=== PATIENT | female | born 1955 | race Caucasian/White ===

== ENCOUNTER 2022-11-20 10:27 | Emergency (ER) | payer MEDICARE, SELFPAY ==
[2022-11-20 10:32] VITALS: BP 139/82; PULSE 77; RESP 18; TEMP 36.1; O2SAT 98; BMI 21.5
--- NOTE | 2022-11-20 10:39 | ED.GENADUL1 ---
HPI - General Adult General Chief complaint: Dizziness Stated complaint: DIZZINESS, FEELING OF POSSIBLE BLACK OUT Time Seen by Provider: 11/20/22 10:39 Source: patient Mode of arrival: walk-in Limitations: no limitations History of Present Illness HPI narrative: the patient has history of hypothyroidism as well as anxiety coming to the Emergency Room after she feels that she is weak when she woke up this morning, she denies any nausea vomiting diarrhea abdominal pain but she had generalized weakness with no laterality the patient has no other complaint although she mentioned that she has been dealing with constipation and diarrhea that is alternating for the last few weeks She also requested a new primary care Review of systems otherwise negative Related Data Previous Rx's Medication Instructions Recorded levothyroxine 88 mcg tablet 88 mcg PO DAILY #14 tabs 11/20/22 (Synthroid) Review of Systems ROS Status of ROS 10 or more systems reviewed and unremarkable except as noted in history and below Exam Narrative Exam Narrative: Nurses notes and vital signs reviewed and patient is not hypoxic. General: Well-appearing and in no apparent distress. Skin: Warm, dry, no pallor noted. No rash. Head: Normocephalic, atraumatic. Neck: Supple, non-tender. Eye: Pupils are equal, round and EOMI. No scleral icterus. Ears, Nose, Mouth, and Throat: TM are clear, no nasal mucosal hypertrophy. Oral mucosa is moist, no posterior oropharynx erythema, uvula is mid-line Cardiovascular: Regular Rate and Rhythm without murmur, gallop or rub. Respiratory: No accessory muscle use or respiratory distress. Lungs are clear to auscultation, no wheezing, rales or rhonchi Chest Wall: no tenderness Back: No midline thoracic or lumbar vertebral tenderness. No CVA tenderness Musculoskeletal: normal ROM, no calf or popliteal tenderness, no lower extremity edema/swelling GI: Abdomen is soft, non-distended. Normal bowel sounds. No masses appreciated. No tenderness to palpation. No rebound, guarding, or rigidity noted. Neurological: A&O x4. No cranial nerve dysfunction observed. No truncal ataxia. Moves all extremities. Sensation intact. Psychiatric: Cooperative and interactive. Normal mood and affect. Constitutional Vital Signs - 24 hr 11/20/22 10:32 Temperature 97 F L Pulse Rate [Monitor] 77 Respiratory Rate 18 Blood Pressure [Right Arm] 139/82 H Pulse Oximetry 98 Oxygen Delivery Method Room Air Course Vital Signs Vital signs: Vital Signs Temperature 97 F L 11/20/22 10:32 Pulse Rate 77 11/20/22 10:32 Respiratory Rate 18 11/20/22 10:32 Blood Pressure 139/82 H 11/20/22 10:32 Pulse Oximetry 98 11/20/22 10:32 Oxygen Delivery Method Room Air 11/20/22 10:32 Temperature 97 F L 11/20/22 10:32 Pulse Rate 77 11/20/22 10:32 Respiratory Rate 18 11/20/22 10:32 Blood Pressure 139/82 H 11/20/22 10:32 Pulse Oximetry 98 11/20/22 10:32 Oxygen Delivery Method Room Air 11/20/22 10:32 Medical Decision Making MDM Narrative Medical decision making narrative: the patient presented to us with generalized weakness and history of anxiety No history of any organic symptoms other than generalized weakness CBC and chemistry showed no acute significant pathology and the patient was feeling much better after she was hydrated with 1 L of fluid The patient had her Synthroid refilled as she does not have a primary care doctor at the moment that she was referred to a new primary care doctor The patient EKG showing sinus rhythm with a heart rate of sixty-four ST elevation or depression .The patient is to followup with primary care physician in next 2-3 days or to return to the emergency department should any of the signs or symptoms worsen or new symptoms develop. The patient agrees with the following Diagnosis and Treatment plan and the patient will be discharged home. Lab Data Labs: Lab Results 11/20/22 Range/Units 10:54 WBC 8.4 (4.0-11.0) 10^3/uL RBC 5.29 (4.20-5.40) 10^6/uL Hgb 15.8 (12.0-16.0) g/dL Hct 47.4 (36.0-48.0) % MCV 89.6 (81.0-99.0) fL MCH 29.9 (26.7-34.0) pg MCHC 33.3 (29.9-35.2) g/dL RDW 13.0 (11.0-15.0) % Plt Count 298 (150-450) 10^3/uL MPV 9.4 L (9.5-13.5) fL Neut % (Auto) 76.8 H (43.0-75.0) % Lymph % (Auto) 14.0 L (20.5-60.0) % [place] % (Auto) 7.1 (1.7-12.0) % Eos % (Auto) 0.8 L (0.9-7.0) % Baso % (Auto) 0.7 (0.2-2.0) % Neut # (Auto) 6.5 (1.4-6.5) 10^3/uL Lymph # (Auto) 1.2 (1.2-3.8) 10^3/uL [place] # (Auto) 0.6 (0.3-0.8) 10^3/uL Eos # (Auto) 0.1 (0.0-0.7) 10^3/uL Baso # (Auto) 0.1 (0.0-0.1) 10^3/uL Abs Immat Gran (auto) 0.05 H (0.00-0.03) 10^3/uL Imm/Tot Granulo (auto) 0.6 H (0.0-0.5) % Sodium 139 (136-145) mmol/L Potassium 4.2 (3.5-5.1) mmol/L Chloride 101 (98-107) mmol/L Carbon Dioxide 27.4 (21.0-32.0) mmol/L Anion Gap 14.8 BUN 11.0 (7.0-18.0) mg/dL Creatinine 0.70 (0.55-1.02) mg/dL Est GFR ( Amer) >60 (>=60) Est GFR (Non-Af Amer) >60 (>=60) BUN/Creatinine Ratio 15.7 Glucose 92 (74-106) mg/dL Calcium 9.2 (8.5-10.1) mg/dL Magnesium 2.4 (1.8-2.4) mg/dL Total Bilirubin 0.5 (0.2-1.0) mg/dL AST 24 (15-37) U/L ALT 18 (14-59) U/L Alkaline Phosphatase 93 (46-116) U/L Total Protein 8.2 (6.4-8.2) g/dL Albumin 3.7 (3.4-5.0) g/dL Globulin 4.5 g/dL Albumin/Globulin Ratio 0.8 TSH 0.688 (0.358-3.740) uIU/mL Discharge Plan Discharge Chief Complaint: Dizziness Clinical Impression: Dizziness, Episode of generalized weakness Patient Disposition: Home, Self-Care Time of Disposition Decision: 12:21 Condition: Good Mode of Transportation: Private Vehicle Prescriptions / Home Meds: New levothyroxine [Synthroid] 88 mcg tablet 88 mcg PO DAILY Qty: 14 0RF Instructions: Dizziness (ED) Stand Alone Forms: Portal Instructions Referrals: MINI HUTCHINSON [Primary Care Provider] - 1 week Follow Up Appointments: New PCP
--- NOTE | 2022-11-20 10:43 | ECG_ITS ---
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
[2022-11-20 11:06] LABS: Basophils Absolute Auto 0.1 10^3/uL (0.0-0.1); Basophils Percent Auto 0.7 % (0.2-2.0); Eosinophils Absolute Auto 0.1 10^3/uL (0.0-0.7); Eosinophils Percent Auto 0.8 % (0.9-7.0); Hematocrit 47.4 % (36.0-48.0); Hemoglobin 15.8 g/dL (12.0-16.0); Immature Granulocytes Abs Auto 0.05 10^3/uL (0.00-0.03); Immature Granulocytes Pct Auto 0.6 % (0.0-0.5); Lymphocytes Absolute Auto 1.2 10^3/uL (1.2-3.8); Mean Corpuscular HGB Conc 33.3 g/dL (29.9-35.2); Mean Corpuscular Hemoglobin 29.9 pg (26.7-34.0); Mean Corpuscular Volume 89.6 fL (81.0-99.0); Mean Platelet Volume 9.4 fL (9.5-13.5); Monocytes Absolute Auto 0.6 10^3/uL (0.3-0.8); Monocytes Percent Auto 7.1 % (1.7-12.0); Neutrophils Absolute Auto 6.5 10^3/uL (1.4-6.5); Neutrophils Percent Auto 76.8 % (43.0-75.0); Platelet Count 298 10^3/uL (150-450); Red Blood Count 5.29 10^6/uL (4.20-5.40); White Blood Count 8.4 10^3/uL (4.0-11.0)
--- NOTE | 2022-11-20 11:06 | ECG_ITS ---
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
[2022-11-20] MEDS: 0.9 % SODIUM CHLORIDE 1,000 ML 1000 ML IV (11:09)
[2022-11-20 11:28] LABS: Anion Gap 14.8
[2022-11-20 11:37] LABS: Alanine Aminotransferase 18 U/L (14-59); Albumin Globulin Ratio 0.8; Albumin Level 3.7 g/dL (3.4-5.0); Alkaline Phosphatase 93 U/L (46-116); Aspartate Amino Transferase 24 U/L (15-37); BUN Creatinine Ratio 15.7; Bilirubin Total 0.5 mg/dL (0.2-1.0); Calcium 9.2 mg/dL (8.5-10.1); Carbon Dioxide 27.4 mmol/L (21.0-32.0); Chloride 101 mmol/L (98-107); Estimated GFR (African America >60 (>=60); Estimated GFR (Non-African Ame >60 (>=60); Globulin 4.5 g/dL; Glucose 92 mg/dL (74-106); Magnesium 2.4 mg/dL (1.8-2.4); Potassium 4.2 mmol/L (3.5-5.1); Sodium 139 mmol/L (136-145); Thyroid Stimulating Hormone 0.688 uIU/mL (0.358-3.740); Total Protein 8.2 g/dL (6.4-8.2)
[2022-11-20 12:58] VITALS: BP 134/72; PULSE 82; RESP 18; O2SAT 98
== END 2022-11-20 12:59 | disposition home or self-care (01) ==
PROVIDERS: Emergency Provider Emergency Medicine; Family Provider Nurse Practitioner Primary Care; PCP Family Medicine
DX: R42 Dizziness and giddiness (principal); R53.1 Weakness; F41.9 Anxiety disorder, unspecified; E03.9 Hypothyroidism, unspecified; Z79.890 Hormone replacement therapy
CPT/HCPCS: 36415; 80053; 83735; 84443; 85025; 93005; 99284

== ENCOUNTER 2022-12-20 14:00 | Outpatient (OUT) | payer MEDICARE, SELFPAY | END 2022-12-21 14:01 | disposition home or self-care (01) | PROVIDERS: Family Provider Nurse Practitioner Primary Care; Visit Provider Surgery | DX: Z01.818 Encounter for other preprocedural examination (principal); R19.4 Change in bowel habit; R13.10 Dysphagia, unspecified ==

== ENCOUNTER 2022-12-25 07:58 | Day surgery (SDC) | payer MEDICARE, SELFPAY ==
[2022-12-25 08:28] VITALS: BP 117/72; PULSE 77; RESP 16; TEMP 36; O2SAT 97; BMI 19.1
[2022-12-25] MEDS: LACTATED RINGER'S SOLUTION 1,000 ML 50 ML IV (08:48)
[2022-12-25 10:19] VITALS: BP 92/56; PULSE 65; RESP 18; TEMP 36; O2SAT 98
[2022-12-25 10:34] VITALS: BP 88/69; PULSE 66; RESP 16; O2SAT 98
[2022-12-25 10:50] VITALS: BP 105/67; PULSE 66; RESP 16; O2SAT 99
--- NOTE | 2022-12-25 13:15 | PM.GSPRC ---
Date of procedure: 12/25/22 Indications for Procedure: This patient is a 67-year-old female who presents for EGD due to occasioonal dysphagia as well as screening colonoscopy. The risks benefits options and potential complications of the procedures were discussed in detail with the patient and they agreed to proceed and consent was signed. Pre-op diagnosis: dysphagia,colon cancer screening Post-op diagnosis: other (normal exams) Procedure: EGD, colonoscopy Anesthesia: MAC Surgeon: Jose Swan Procedure Summary: The patient was brought to the endoscopy suite and placed in the supine upright position. Under MAC a bite block was placed. The fiberoptic endoscope was passed through the oropharynx and esophagus. This is easily advanced into the stomach. Stomach appeared grossly normal. Then the scope was advanced into the duodenum. 1st and 2nd portions of the duodenum were unremarkable. Then the scope was then withdrawn into the stomach. The upper portion stomach was visualized and this also was unremarkable. The gastroesophageal junction appeared normal. The stomach was decompressed. The remainder esophagus appeared unremaarkable on final trocar in the scope and this portion of procedure is ended. The patient was in placed in left lateral decubitus positionn for planned colonoscopy. ? Under MAC the fiberoptic colonoscope was introduced into the rectum. This was gradually advanced through the colon to the cecum. The cecal landmarks were identified. The bowel prep was good. Gradual withdrawal of the colonoscope was then undertaken. No vascular polypoid or mucosal lesions were noted throughout the entire length of the colon. The anal rectal canal was unremarkable. The colon was decompressed. Digital rectal exam was unremarkable. The procedure was ended and the patient was transferred to the recovery area in stable condition. Recommended follow-up colonoscopy in ten years. Estimated blood loss (mL): 0 Specimens: none Complications: No
== END 2022-12-25 10:51 | disposition home or self-care (01) ==
PROVIDERS: Family Provider Nurse Practitioner Primary Care; Visit Provider Surgery
PROC: (CPT 43235; principal; 2022-12-25 09:20)
DX: Z12.11 Encounter for screening for malignant neoplasm of colon (principal); R13.10 Dysphagia, unspecified; R19.4 Change in bowel habit; F17.210 Nicotine dependence, cigarettes, uncomplicated
CPT/HCPCS: 43235; G0121; J2704

== ENCOUNTER 2023-01-28 15:06 | Emergency (ER) | payer MEDICARE, SELFPAY ==
[2023-01-28] VITALS (14 sets, daily range): BP systolic 110–125; BP diastolic 65–82; PULSE 70–104; RESP 13–21; TEMP 36.7; O2SAT 94–98; BMI 19.0
--- NOTE | 2023-01-28 15:32 | ECG_ITS ---
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
--- NOTE | 2023-01-28 15:43 | CT_ITS ---
The [address] [address] Patient Name: MARÍA BONILLA MRN: [id number] date: 1955 Sex: F Assigned Patient Location: ED.MAIN Current Patient Location: Accession/Order Number: [id number] Exam Date: 01/28/2023 16:15 Report Date: 01/28/2023 17:24 At the request of: ELSA NUNEZ Procedure: CT abdomen pelvis wo con EXAM: CT abdomen pelvis wo con HISTORY: blood in stool COMPARISON: None. TECHNIQUE: Unenhanced helical acquisition obtained through the abdomen and the pelvis. FINDINGS: Mild pulmonary scarring noted within the visualized lung bases. The pleural spaces are clear. Unremarkable gallbladder. Biliary ductal dilatation with the common bile duct measuring 1 cm in diameter. Allowing for the lack of intravenous contrast, the liver, spleen, pancreas, adrenal glands and the kidneys are unremarkable. Moderate diffuse atherosclerotic disease. No enlarged lymph nodes within the abdomen or the pelvis. Normal appendix. Diverticulosis without radiographic evidence of diverticulitis. Moderate stool burden. No ascites or focal intraperitoneal fluid collections. CT/CT abdomen pelvis wo con IMPRESSION: 1. Biliary ductal dilatation with the common bile duct measuring 1 cm in diameter. Recommend correlation with LFTs. 2. Diverticulosis without radiographic evidence of diverticulitis. Electronically authenticated by: CRYSTAL SEGOVIA Date: 01/28/2023 17:24
--- NOTE | 2023-01-28 15:49 | ED.DIZZY1 ---
HPI - Dizziness General Chief Complaint: Dizziness Stated Complaint: DIZZINESS Time Seen by Provider: 01/28/23 15:30 Source: patient Mode of arrival: Wheelchair History of Present Illness HPI Narrative: The patient presenting to us with generalized weakness as well as what she said was mucus and blood in her stool 1 time she mentioned that she had a recent colonoscopy and endoscopy that showed no acute pathology, she is denying any pain any nausea any vomiting or any change in her appetite No fever chills coughing but she mentioned that she thinks that she have some tightness in her abdomen no pain The patient also mentioned having dizziness every now and then and having a lot to do at home not able to do it because she is feeling dizzy and weak Related Data Home Medications Medication Instructions Recorded Confirmed barley green supplement 12/20/22 Previous Rx's Medication Instructions Recorded levothyroxine 88 mcg tablet 88 mcg PO DAILY #14 tabs 11/20/22 (Synthroid) Allergies Allergy/AdvReac Type Severity Reaction Status Date / Time nitrofurantoin Allergy dyspnea Verified 12/20/22 14:02 [From Macrobid] Review of Systems ROS Status of ROS 10 or more systems reviewed and unremarkable except as noted in history and below [facility] Medical History (Updated 01/28/23 @ 17:11 by Joyce Hackett MD) Surgical History (Updated 12/25/22 @ 08:25 by Rachael Alvarez) Family History (Updated 12/20/22 @ 14:15 by Carmina Cedillo NP) Other Atrial fibrillation Family history of heart disease Family history of myocardial infarction Family history of stroke Social History (Updated 12/25/22 @ 08:28 by Rachael Alvarez) Within the past year, how often did you have a drink containing alcohol: never Score interpretation: A score less than 3 is consistent with normal alcohol consumption. Smoking status: Current every day smoker What tobacco products do you use: cigarettes Pack-years instructions: Please document either packs per day or cigarettes per day in order for pack years to calculate correctly. If using both packs per day and cigarettes per day, please make sure that they denote the same thing. If they differ, pack-years will calculate based on packs per day. Packs Per Day Cigarettes Per Day 1/4 of a pack 5 1/2 a pack 10 3/4 of a pack 15 1 pack 20 1.5 pack 30 2 packs 40 2.5 packs 50 3 packs 60 Cigarettes per day: 10 Years smoked: 39 Smoking pack-years: 19.50 Non-prescribed substance use: denies use Highest level of school completed/degree received: high school graduate Exam Narrative Exam Narrative: Nurses notes and vital signs reviewed and patient is not hypoxic. General: Well-appearing and in no apparent distress. Skin: Warm, dry, no pallor noted. No rash. Head: Normocephalic, atraumatic. Neck: Supple, non-tender. Eye: Pupils are equal, round and EOMI. No scleral icterus. Ears, Nose, Mouth, and Throat: TM are clear, no nasal mucosal hypertrophy. Oral mucosa is moist, no posterior oropharynx erythema, uvula is mid-line Cardiovascular: Regular Rate and Rhythm without murmur, gallop or rub. Respiratory: No accessory muscle use or respiratory distress. Lungs are clear to auscultation, no wheezing, rales or rhonchi Chest Wall: no tenderness Back: No midline thoracic or lumbar vertebral tenderness. No CVA tenderness Musculoskeletal: normal ROM, no calf or popliteal tenderness, no lower extremity edema/swelling GI: Abdomen is soft, non-distended. Normal bowel sounds. No masses appreciated. No tenderness to palpation. No rebound, guarding, or rigidity noted. Neurological: A&O x4. No cranial nerve dysfunction observed. No truncal ataxia. Moves all extremities. Sensation intact. Psychiatric: Cooperative and interactive. Normal mood and affect. Constitutional Vital Signs, click to edit/add: Last Vital Signs Temp 98.1 F 01/28/23 15:19 Pulse 85 01/28/23 15:55 Resp 16 01/28/23 15:19 BP 125/76 01/28/23 15:55 Pulse Ox 97 01/28/23 15:19 O2 Del Method Room Air 01/28/23 15:19 Course Vital Signs Vital signs: Vital Signs Temperature 98.1 F 01/28/23 15:19 Pulse Rate 96 H 01/28/23 15:19 Respiratory Rate 16 01/28/23 15:19 Blood Pressure 112/79 01/28/23 15:19 Pulse Oximetry 97 01/28/23 15:19 Oxygen Delivery Method Room Air 01/28/23 15:19 Temperature 98.1 F 01/28/23 15:19 Pulse Rate 85 01/28/23 15:55 Respiratory Rate 16 01/28/23 15:19 Blood Pressure 125/76 01/28/23 15:55 Pulse Oximetry 97 01/28/23 15:19 Oxygen Delivery Method Room Air 01/28/23 15:19 MDM - Dizziness MDM Narrative Medical decision making narrative: It was noted that the patient presented to us almost with similar symptoms in November she mentioned that her child protective services specialist put her on some antibiotic earlier in December when she had some blood in her stool and that symptom resolved, the patient mentioned that she had a colonoscopy after that that showed no acute pathology On abdominal examination there was no tenderness at all on exam and the patient vitals are within normal except for mild tachycardia EKG showing sinus rhythm with a heart rate of [address] elevation or depression CBC and chemistry showed no acute significant pathology and her work-up did not show any acute finding, and she have no tenderness on abdominal examination her liver enzymes were within normal urinalysis showed no UTI The CT of the abdomen pelvis showed no acute pathology as well the patient right now will be discharged with instruction to follow-up with her child protective services specialist and to come back in case of new symptoms just continue hydration at home The patient is to follow up with primary care physician in next 2-3 days or to return to the emergency department should any of the signs or symptoms worsen or new symptoms develop. The patient agrees with the following Diagnosis and Treatment plan and the patient will be discharged home. Lab Data Labs: Lab Results 01/28/23 Range/Units 15:43 WBC 10.3 (4.0-11.0) 10^3/uL RBC 5.07 (4.20-5.40) 10^6/uL Hgb 15.1 (12.0-16.0) g/dL Hct 45.2 (36.0-48.0) % MCV 89.2 (81.0-99.0) fL MCH 29.8 (26.7-34.0) pg MCHC 33.4 (29.9-35.2) g/dL RDW 13.4 (11.0-15.0) % Plt Count 446 (150-450) 10^3/uL MPV 8.3 L (9.5-13.5) fL Neut % (Auto) 75.0 (43.0-75.0) % Lymph % (Auto) 14.8 L (20.5-60.0) % [place] % (Auto) 7.8 (1.7-12.0) % Eos % (Auto) 1.3 (0.9-7.0) % Baso % (Auto) 0.7 (0.2-2.0) % Neut # (Auto) 7.8 H (1.4-6.5) 10^3/uL Lymph # (Auto) 1.5 (1.2-3.8) 10^3/uL [place] # (Auto) 0.8 (0.3-0.8) 10^3/uL Eos # (Auto) 0.1 (0.0-0.7) 10^3/uL Baso # (Auto) 0.1 (0.0-0.1) 10^3/uL Abs Immat Gran (auto) 0.04 H (0.00-0.03) 10^3/uL Imm/Tot Granulo (auto) 0.4 (0.0-0.5) % PT 9.6 (9.0-11.6) sec INR <0.93 Sodium 134 L (136-145) mmol/L Potassium 4.2 (3.5-5.1) mmol/L Chloride 99 (98-107) mmol/L Carbon Dioxide 24.8 (21.0-32.0) mmol/L Anion Gap 14.4 BUN 11.0 (7.0-18.0) mg/dL Creatinine 0.73 (0.55-1.02) mg/dL Est GFR ( Amer) >60 (>=60) Est GFR (Non-Af Amer) >60 (>=60) BUN/Creatinine Ratio 15.1 Glucose 96 (74-106) mg/dL Calcium 9.1 (8.5-10.1) mg/dL Total Bilirubin 0.6 (0.2-1.0) mg/dL AST 22 (15-37) U/L ALT 18 (14-59) U/L Alkaline Phosphatase 93 (46-116) U/L Troponin I High Sens 4.6 (4.0-51.3) pg/mL Total Protein 7.8 (6.4-8.2) g/dL Albumin 3.7 (3.4-5.0) g/dL Globulin 4.1 g/dL Albumin/Globulin Ratio 0.9 Urine Color Lt. yellow (YELLOW) Urine Clarity Clear (CLEAR) Urine pH 6.0 (5.0-9.0) Ur Specific [place] 1.010 (1.005-1.025) Urine Protein Negative (NEG/TRACE) mg/dL Urine Glucose (UA) Negative (NEGATIVE) mg/dL Urine Ketones Negative (NEGATIVE) mg/dL Urine Occult Blood Small A (NEGATIVE) Urine Nitrite Negative (NEGATIVE) Urine Bilirubin Negative (NEGATIVE) Urine Urobilinogen 0.2 (0.2-1.0) EU/dL Ur Leukocyte Esterase Negative (NEGATIVE) Urine RBC 2-5 A (0-2) #/HPF Urine WBC None seen (NONE SEEN) #/HPF Ur Squamous Epith Cells Rare (NONE/RARE) #/LPF Urine Crystals None seen (None Seen) #/HPF Urine Bacteria None seen (NONE SEEN) #/HPF Urine Casts None seen (NONE SEEN) #/LPF Urine Mucus None seen (NONE SEEN) Ur Culture Indicated? No Discharge Plan Discharge Chief Complaint: Dizziness Clinical Impression: Dizziness Patient Disposition: Home, Self-Care Time of Disposition Decision: 17:11 Condition: Good Prescriptions / Home Meds: No Action barley green supplement levothyroxine [Synthroid] 88 mcg tablet 88 mcg PO DAILY Qty: 14 0RF Instructions: Dizziness (ED) Stand Alone Forms: Portal Instructions Referrals: Physician,Non-Staff, MD [Primary Care Provider] - 1 week
[2023-01-28 15:55] LABS: Basophils Absolute Auto 0.1 10^3/uL (0.0-0.1); Basophils Percent Auto 0.7 % (0.2-2.0); Eosinophils Absolute Auto 0.1 10^3/uL (0.0-0.7); Eosinophils Percent Auto 1.3 % (0.9-7.0); Hematocrit 45.2 % (36.0-48.0); Hemoglobin 15.1 g/dL (12.0-16.0); Immature Granulocytes Abs Auto 0.04 10^3/uL (0.00-0.03); Immature Granulocytes Pct Auto 0.4 % (0.0-0.5); Lymphocytes Absolute Auto 1.5 10^3/uL (1.2-3.8); Lymphocytes Percent Auto 14.8 % (20.5-60.0); Mean Corpuscular HGB Conc 33.4 g/dL (29.9-35.2); Mean Corpuscular Hemoglobin 29.8 pg (26.7-34.0); Mean Corpuscular Volume 89.2 fL (81.0-99.0); Mean Platelet Volume 8.3 fL (9.5-13.5); Monocytes Absolute Auto 0.8 10^3/uL (0.3-0.8); Monocytes Percent Auto 7.8 % (1.7-12.0); Neutrophils Absolute Auto 7.8 10^3/uL (1.4-6.5); Platelet Count 446 10^3/uL (150-450); Red Blood Count 5.07 10^6/uL (4.20-5.40); Red Cell Distribution Width 13.4 % (11.0-15.0); White Blood Count 10.3 10^3/uL (4.0-11.0)
[2023-01-28 15:56] LABS: Bilirubin Urine NEGATIVE (NEGATIVE); Blood Urine SMALL (NEGATIVE); Clarity Urine CLEAR (CLEAR); Color Urine LT. YELLOW (YELLOW); Glucose Urine UA NEGATIVE (NEGATIVE); Ketones Urine NEGATIVE (NEGATIVE); Leukocyte Esterase Urine NEGATIVE (NEGATIVE); Nitrite Urine NEGATIVE (NEGATIVE); Protein Urine NEGATIVE (NEG/TRACE); Urobilinogen Urine 0.2 EU/dL (0.2-1.0)
[2023-01-28] MEDS: 0.9 % SODIUM CHLORIDE 1,000 ML 1000 ML IV (16:01)
[2023-01-28 16:04] LABS: Urine Microscopic Indicated YES
[2023-01-28 16:08] LABS: Alanine Aminotransferase 18 U/L (14-59); Albumin Globulin Ratio 0.9; Albumin Level 3.7 g/dL (3.4-5.0); Alkaline Phosphatase 93 U/L (46-116); Anion Gap 14.4; Aspartate Amino Transferase 22 U/L (15-37); BUN Creatinine Ratio 15.1; Bilirubin Total 0.6 mg/dL (0.2-1.0); Calcium 9.1 mg/dL (8.5-10.1); Carbon Dioxide 24.8 mmol/L (21.0-32.0); Chloride 99 mmol/L (98-107); Estimated GFR (African America >60 (>=60); Estimated GFR (Non-African Ame >60 (>=60); Globulin 4.1 g/dL; Glucose 96 mg/dL (74-106); Potassium 4.2 mmol/L (3.5-5.1); Sodium 134 mmol/L (136-145); Total Protein 7.8 g/dL (6.4-8.2)
[2023-01-28 16:09] LABS: Bacteria Urine NONE SEEN #/HPF (NONE SEEN); Cast Seen? NONE SEEN #/LPF (NONE SEEN); Crystals Seen? None Seen #/HPF (None Seen); Mucus Urine NONE SEEN (NONE SEEN); Squamous Epithelial Cell Urine RARE #/LPF (NONE/RARE); Urine Culture Indicated NO; WBC Urine NONE SEEN #/HPF (NONE SEEN)
[2023-01-28 16:10] LABS: Troponin I High Sensitivity 4.6 pg/mL (4.0-51.3)
[2023-01-28 16:11] LABS: Prothrombin Time 9.6 sec (9.0-11.6)
[2023-01-28 16:18] LABS: INR <0.93
== END 2023-01-28 17:20 | disposition home or self-care (01) ==
PROVIDERS: Emergency Provider Emergency Medicine; Family Provider Nurse Practitioner Primary Care
DX: R42 Dizziness and giddiness (principal); F17.210 Nicotine dependence, cigarettes, uncomplicated
CPT/HCPCS: 36415; 74176; 80053; 81001; 84484; 85025; 85610; 93005; 96360; 99285

== ENCOUNTER 2023-03-05 18:24 | Outpatient (REF) | payer MEDICARE, SELFPAY | END 2023-03-05 18:25 | disposition home or self-care (01) | LOC: LAB 18:24 | PROVIDERS: Family Provider Nurse Practitioner Primary Care; Visit Provider Nurse Practitioner Primary Care | DX: R30.9 Painful micturition, unspecified (principal) | CPT/HCPCS: 87086 ==

== ENCOUNTER 2023-06-21 11:33 | Outpatient (REF) | payer MEDICARE, SELFPAY | END 2023-06-21 11:34 | disposition home or self-care (01) | LOC: LAB 11:33 | PROVIDERS: Family Provider Nurse Practitioner Primary Care; Visit Provider Nurse Practitioner Primary Care | DX: R31.9 Hematuria, unspecified (principal) | CPT/HCPCS: 87086 ==